=== PATIENT | female | born 1970 ===

== ENCOUNTER 2017-03-12 14:33 | Emergency (ER) | payer BC, OTHER ==
[2017-03-12 14:49] VITALS: BP 97/63
--- NOTE | 2017-03-12 15:34 | UC ---
Throat Pain/Nasal Robson HPI - HPI Summary HPI Summary: 46 yo F with left ear pain and sinus congestion for 3 weeks. States it was nasal congestion and just developing and then she went to [employer] and then after coming home she is still having left ear pain and "popping" noises. No fever. Hx sinus and ear infections. - History of Current Complaint Chief Complaint: UCEar Stated Complaint: EARS SINUS COMPLAINT Time Seen by Provider: 03/12/17 15:33 Hx Obtained From: Patient Hx Last Menstrual Period: 02/25/17 ?: No Onset/Duration: Gradual Onset, Lasting Weeks, Still Present Severity: Moderate Pain Intensity: 3 Pain Scale Used: 0-10 Numeric Cough: None Associated Signs & Symptoms: Positive: Sinus Discomfort, Nasal Discharge - Epiglottits Risk Factors Epiglottis Risk Factors: Negative - Allergies/Home Medications Allergies/Adverse Reactions: Allergies Allergy/AdvReac Type Severity Reaction Status Date / Time Erythromycin Allergy Severe Rash Verified 03/12/17 14:49 PMH/Surg Hx/FS Hx/Imm Hx Previously Healthy: Yes - Surgical History Surgical History: Yes Surgery Procedure, Year, and Place: . laporoscopy - Family History Known Family History: Positive: Diabetes - Social History Lives: With Family Alcohol Use: Occasionally Substance Use Type: None Smoking Status (MU): Never Smoked Tobacco Review of Systems Constitutional: Negative Skin: Negative Eyes: Negative ENT: Ear Ache, Sinus Congestion Respiratory: Negative Cardiovascular: Negative Gastrointestinal: Negative Genitourinary: Negative Motor: Negative Neurovascular: Negative Musculoskeletal: Negative Neurological: Negative Psychological: Negative All Other Systems Reviewed And Are Negative: Yes Physical Exam Triage Information Reviewed: Yes Appearance: Well-Appearing, Well-Nourished, Pain Distress Vital Signs: Initial Vital Signs Temp 98.2 F 03/12/17 14:42 Pulse 82 03/12/17 14:42 Resp 16 03/12/17 14:42 BP 97/63 03/12/17 14:42 Pulse Ox 97 03/12/17 14:42 Vital Signs Reviewed: Yes Eyes: Positive: Conjunctiva Clear ENT: Positive: TM red - left, Other: - sinus tenderness Neck: Positive: Supple, Nontender, No Lymphadenopathy Respiratory: Positive: Lungs clear, Normal breath sounds, No respiratory distress, No accessory muscle use Cardiovascular: Positive: RRR, No Murmur, Pulses Normal, Brisk Capillary Refill Musculoskeletal: Positive: Strength Intact, ROM Intact Neurological: Positive: Alert, Muscle Tone Normal Psychological Exam: Normal Skin Exam: Normal Throat Pain/Nasal Course/Dx - Differential Dx/Diagnosis Differential Diagnosis/HQI/PQRI: Otitis Media, Pharyngitis, Sinusitis Provider Diagnoses: left OM. sinusitis Discharge - Discharge Plan Condition: Stable Disposition: HOME Prescriptions: Amoxicillin/Clavulanate TAB* [Augmentin TAB 875*] 875 mg PO BID #20 tab Fluticasone NASAL SPRAY 50MCG* [Flonase NASAL SPRAY 50MCG*] 2 spray BOTH NARES DAILY #1 btl Patient Education Materials: Sinusitis (ED), Otitis Media (ED) Referrals: Non Staff,Doctor [Primary Care Provider] -
== END 2017-03-12 15:51 | disposition home or self-care (01) ==
LOC: UCCORT 14:33
DX: H66.92 Otitis media, unspecified, left ear (principal); J32.9 Chronic sinusitis, unspecified; Z88.1 Allergy status to other antibiotic agents
CPT/HCPCS: 99202; G0463